=== PATIENT | female | born 1985 ===

== ENCOUNTER 2024-03-14 04:38 | Day surgery (SDC) | payer BC ==
[2024-03-09 12:54] VITALS: BMI 50.1
[2024-03-14] MEDS ORDERED: ACETAMINOPHEN 325 MG TABLET (FP) PO PRN (07:38)
[2024-03-14] MEDS ORDERED: ONDANSETRON 4 MG/2 ML VIAL IVPUSH PRN (07:38)
[2024-03-14] MEDS ORDERED: oxyCODONE HCL 5 MG TABLET PO PRN (07:38)
[2024-03-14] MEDS ORDERED: PROPOFOL 20 ML ONE (11:42)
[2024-03-14] MEDS ORDERED: MIDAZOLAM HCL 2 MG/2 ML SINGLE DOSE VIAL ONE (11:42)
[2024-03-14] MEDS ORDERED: DEXAMETHASONE SOD PHOSPHATE 4 MG/1 ML VIAL ONE (12:25)
[2024-03-14] MEDS ORDERED: ONDANSETRON 4 MG/2 ML VIAL ONE ×2 (12:25→12:26)
[2024-03-14] MEDS ORDERED: KETOROLAC TROMETHAMINE 30 MG/1 ML VIAL ONE (12:26)
[2024-03-14] MEDS ORDERED: OXYTOCIN 10 UNITS/ML VIAL ONE ×2 (12:56)
[2024-03-14] MEDS: LACTATED RINGERS SOLUTION 1,000 ML IV SCH (13:16)
[2024-03-14 15:24] VITALS: RESP 18
[2024-03-14 15:26] VITALS: BP 122/68; PULSE 58; TEMP 97.8
== END 2024-03-14 15:00 | disposition home or self-care (01) ==
LOC: JASU-SURG 04:38
PROVIDERS: ATTEND Obstetrics & Gynecology
PROC: 0UB98ZZ Excision of Uterus, Via Natural or Artificial Opening Endoscopic (ICD-10-PCS; principal; 2024-03-14 10:30)
DX: N84.0 Polyp of corpus uteri (principal)
CPT/HCPCS: 81025; 86850; 86900; 86901; 88305-TC; 94760